=== PATIENT | male | born 1960 | race Caucasian/White ===

== ENCOUNTER 2021-02-10 11:47 | Outpatient (CLI) | payer BC ==
[~2021-02-10] VITALS: Ht 182 cm; Wt 79.0 kg
[~2021-02-10 11:47] MED LIST: CTRZ10T PO; NAPR-243 PO
[2021-02-10 11:49] VITALS: BP 123/86
[2021-02-10] MEDS ORDERED: diphenhydrAMINE 50 MG/ML INJ (BENADRYL) IV PRN (12:00)
[2021-02-10] MEDS ORDERED: ONDANSETRON 4 MG/2 ML (SDV) Z0FRAN IV PRN (12:00)
[2021-02-10] MEDS ORDERED: CASIRIVIMAB/IMDEVIMAB 1,200 MG in NS (IVPB) 250 ML IV ONE (12:00)
[2021-02-10] MEDS ORDERED: EPINEPHrine INJECTION 1 MG/ML AMP IM PRN (12:00)
[2021-02-10] MEDS ORDERED: ACETAMINOPHEN 500 MG TAB (TYLENOL) PO PRN (12:00)
[2021-02-10 13:18] VITALS: BP 117/74
== END 2021-02-10 13:50 | disposition home or self-care (01) ==
LOC: INFUSION 11:47
PROVIDERS: ATTEND Nurse Practitioner Family
DX: Z23 Encounter for immunization (principal); U07.1 COVID-19